=== PATIENT | male | born 1940 | race Caucasian/White ===

== ENCOUNTER 2017-08-18 09:10 | Inpatient (IN) | payer MEDICARE ==
[2017-08-18] VITALS (11 sets, daily range): BP systolic 140–180; BP diastolic 56–79; PULSE 57–103; RESP 20–26; TEMP 98.3–98.6; O2SAT 67–100
[~2017-08-18] VITALS: Ht 177.8 cm; Wt 112.4 kg
[2017-08-18] MEDS ORDERED: ALLO100T PO (09:42)
[2017-08-18] MEDS ORDERED: CLOP75TA PO (09:42)
[2017-08-18] MEDS ORDERED: METO5TAB3 PO (09:42)
[2017-08-18] MEDS ORDERED: ATOR20TA15 PO (09:42)
[2017-08-18] MEDS ORDERED: FURO80TA PO (09:42)
[2017-08-18] MEDS ORDERED: FENO145T2 PO (09:42)
[2017-08-18] MEDS ORDERED: LANTUS2P SQ (09:42)
[2017-08-18] MEDS ORDERED: POTA-163 PO (09:42)
[2017-08-18] MEDS ORDERED: METO100T PO (09:42)
[2017-08-18] MEDS ORDERED: AMLO10TA2 PO (09:42)
[2017-08-18] MEDS ORDERED: GLIM2TAB PO (09:42)
[2017-08-18] MEDS ORDERED: METF1000 PO (09:42)
[2017-08-18] MEDS ORDERED: BENA40TA PO (09:42)
--- NOTE | 2017-08-18 09:59 | PD ---
HPI Chief Complaint: Respiratory Distress Time Seen by Provider: 09:42 Travel History International Travel<30 days: No Contact w/Intl Traveler<30days: No Traveled to known affect area: No History of Present Illness HPI This patient complains of shortness of breath. Duration is 2-3 days. He is also had some central chest tightness. Currently having any chest pain. He said some swelling in his feet and legs beyond usual. He took an extra diuretic today. He has had a cough producing some yellowish phlegm. Denies fever. He has history of bypass grafting surgery. He quit smoking many years ago. He arrives very short of breath and has critical oxygen saturation of 67% on room air. He is having hypoxic respiratory failure and placed on a nonrebreather PFSH Past Medical History Hx Anticoagulant Therapy: Yes (PLAVIX) Cardiovascular Problems: Yes (CHF, OPEN HEART SUGERY) Social History Alcohol Use: No Tobacco Use: No Substance Use: No Allergies-Medications (Allergen,Severity, Reaction): Coded Allergies: No Known Allergies (Unverified , 08/18/17) Reported Meds & Prescriptions Reported Meds & Active Scripts Active Reported Metolazone 5 Mg Tab 5 Mg PO PRN MDD 5 MG Amlodipine (Amlodipine Besylate) 10 Mg Tab 10 Mg PO DAILY Fenofibrate 145 Mg Tab 145 Mg PO DAILY Clopidogrel (Clopidogrel Bisulfate) 75 Mg Tab 75 Mg PO DAILY Potassium Chloride ER (Potassium Chloride) 20 Meq Tab 20 Meq PO DAILY Glimepiride 2 Mg Tab 2 Mg PO DAILY Take with breakfast or first main meal Atorvastatin (Atorvastatin Calcium) 20 Mg Tab 20 Mg PO HS Allopurinol 100 Mg Tab 100 Mg PO DAILY Benazepril (Benazepril HCl) 40 Mg Tab 80 Mg PO DAILY Furosemide 80 Mg Tab 80 Mg PO BID Metformin (Metformin HCl) 1,000 Mg Tab 2,000 Mg PO DAILY With a meal Metoprolol Tartrate 100 Mg Tab 100 Mg PO DAILY Lantus Inj (Insulin Glargine) 1,000 Unit/10 Ml Vial 20 Units SQ HS Review of Systems General / Constitutional: No: Fever Eyes: No: Visual changes HENT: No: Headaches Cardiovascular: Positive: Chest Pain or Discomfort, Edema Respiratory: Positive: Cough, Shortness of Breath, Wheezing Gastrointestinal: No: Abdominal Pain Genitourinary: No: Dysuria Musculoskeletal: Positive: Edema, No: Pain Skin: No Rash Neurologic: No: Weakness Psychiatric: No: Depression Endocrine: No: Polydipsia Hematologic/Lymphatic: No: Easy Bruising Physical Exam Narrative GENERAL: Well-nourished, well-developed patient in respiratory distress. SKIN: Focused skin assessment reveals no rash and nodules. Skin is Warm and dry. HEAD: Atraumatic. Normocephalic. EYES: Pupils equal and round. No scleral icterus. No injection or drainage. ENT: No nasal bleeding or discharge. Mucous membranes pink and moist. NECK: Trachea midline. No JVD. CARDIOVASCULAR: Regular rate and rhythm. No murmur appreciated. RESPIRATORY: Positive accessory muscle use. Bilateral basilar crackling and some expiratory wheezing diffusely. Breath sounds equal bilaterally. GASTROINTESTINAL: Abdomen soft, obese, non-tender, nondistended. Hepatic and splenic margins not palpable. MUSCULOSKELETAL: No obvious deformities. No clubbing. No cyanosis. Symmetric pitting edema of the feet and ankles and lower legs NEUROLOGICAL: Awake and alert. No obvious cranial nerve deficits. Motor grossly within normal limits. Normal speech. PSYCHIATRIC: Appropriate mood and affect; insight and judgment normal. Data Data Last Documented VS Vital Signs Date Time Temp Pulse Resp B/P (MAP) Pulse Ox O2 Delivery O2 Flow Rate FiO2 08/18/17 13:09 62 20 140/56 (84) 95 Nasal Cannula 4.00 Orders Orders Complete Blood Count With Diff (08/18/17 09:48) Basic Metabolic Panel (Bmp) (08/18/17 09:48) B-Type Natriuretic Peptide (08/18/17 09:48) Act Partial Throm Time (Ptt) (08/18/17 09:48) Prothrombin Time / Inr (Pt) (08/18/17 09:48) Ckmb (Isoenzyme) Profile (08/18/17 09:48) Troponin I (08/18/17 09:48) Iv Access Insert/Monitor (08/18/17:48) Ecg Monitoring (08/18/17:48) Oximetry (08/18/17:48) Oxygen Administration (08/18/17 09:48) Chest, Single Ap (08/18/17 09:48) Sodium Chloride 0.9% Flush (Ns Flush) (08/18/17 10:00) Albuterol-Ipratropium Neb (Duoneb Neb) (08/18/17 10:00) Furosemide Inj (Lasix Inj) (08/18/17 10:00) Aspirin (Aspirin) (08/18/17 10:00) Electrocardiogram (08/18/17 09:16) Furosemide Inj (Lasix Inj) (08/18/17 10:30) CKMB (08/18/17 11:05) CKMB% (08/18/17 11:05) Labs Laboratory Tests Test 08/18/17 09:30 08/18/17 11:05 White Blood Count 8.2 TH/MM3 Red Blood Count 4.67 MIL/MM3 Hemoglobin 14.1 GM/DL Hematocrit 43.1 % Mean Corpuscular Volume 92.4 FL Mean Corpuscular Hemoglobin 30.3 PG Mean Corpuscular Hemoglobin Concent 32.8 % Red Cell Distribution Width 17.7 % Platelet Count 193 TH/MM3 Mean Platelet Volume 8.1 FL Neutrophils (%) (Auto) 72.7 % Lymphocytes (%) (Auto) 16.1 % Monocytes (%) (Auto) 9.4 % Eosinophils (%) (Auto) 1.3 % Basophils (%) (Auto) 0.5 % Neutrophils # (Auto) 6.0 TH/MM3 Lymphocytes # (Auto) 1.3 TH/MM3 Monocytes # (Auto) 0.8 TH/MM3 Eosinophils # (Auto) 0.1 TH/MM3 Basophils # (Auto) 0.0 TH/MM3 CBC Comment DIFF FINAL Differential Comment Prothrombin Time 11.4 SEC Prothromb Time International Ratio 1.1 RATIO Activated Partial Thromboplast Time 21.9 SEC B-Type Natriuretic Peptide 328 PG/ML Blood Urea Nitrogen 17 MG/DL Creatinine 1.50 MG/DL Random Glucose 132 MG/DL Calcium Level 9.6 MG/DL Sodium Level 142 MEQ/L Potassium Level 3.3 MEQ/L Chloride Level 103 MEQ/L Carbon Dioxide Level 31.0 MEQ/L Anion Gap 8 MEQ/L Estimat Glomerular Filtration Rate 45 ML/MIN Total Creatine Kinase 104 U/L Troponin I LESS THAN 0.02 NG/ML MDM Medical Decision Making Medical Screen Exam Complete: Yes Emergency Medical Condition: Yes Medical Record Reviewed: Yes Differential Diagnosis Congestive heart failure, ACS, respiratory failure Narrative Course I have reviewed the patient's electronic medical record. Patient arrives critically ill. He is in hypoxic respiratory failure. I placed him on nonrebreather. Saturations are in the upper 90s on that. He received multiple breathing treatments and 60 mg IV Lasix I reviewed his EKG which shows sinus rhythm and no acute ST elevation. Heart rate of 58 Extended cardiac monitoring reveals sinus rhythm without ectopy Labs sent 1020: Reviewed his chest x-ray which shows diffuse pulmonary edema I do not see any consolidation After review that I gave him an additional 40 mg IV Lasix Patient is tachypneic on nonrebreather and tiring out. I placed him on BiPAP therapy to ease the work of breathing. 1100: Patient has urinated 750 cc 12:00: Patient is significantly improved. Taken him off BiPAP and placed on oxygen. All his workup is reviewed. Cardiac enzymes are negative General labs are noted. CBC normal 1310: Patient is urinated almost 3 L He feels improved He still has dyspnea and not stable for outpatient follow-up but now his saturation of mid 90s on a nasal cannula No longer critically ill I do not feel he needs intensive care or ammonium nitrate crystallizer at this point Critical Care Narrative Aggregate critical care time was 80 minutes. Time to perform other separately billable procedures was not included in the critical care time. My time did not include minutes spent treating any other patients simultaneously or on activities that did not directly contribute to the patient's treatment. The services I provided to this patient were to treat and/or prevent clinically significant deterioration that could result in: Cardiopulmonary arrest, cardiac arrhythmia, hypoxemic brain injury I provided critical care services requiring my management, as noted below: Chart data review, documentation time, medication orders and management, vital sign assessments/reviewing monitor data, ordering and reviewing lab tests, ordering and interpreting/reviewing x-rays and diagnostic studies, care of the patient and discussion of the patient with the admitting physicians. Diagnosis Primary Impression: Acute respiratory failure with hypoxia Additional Impression: CHF exacerbation Qualified Codes: I50.9 - Heart failure, unspecified Admitting Information Admitting Physician Requests: Td Snow MD Aug 18, 2017 09:59
[2017-08-18] MEDS ORDERED: FUROSEMIDE 100 MG/10 ML VIAL IV PUSH ONE (10:00)
[2017-08-18] MEDS ORDERED: ASPIRIN 325 MG TAB PO ONE (10:00)
[2017-08-18] MEDS ORDERED: SODIUM CHLORIDE 0.9% FLUSH 10 ML FLUSH IVF PRN (10:00)
[2017-08-18] MEDS: RESP: ALBUTEROL 2.5 MG/IPRATROPIUM 0.5 MG NEB (SCH) INH ×2 (10:03→10:04)
[2017-08-18 10:12] LABS: BASOPHIL % 0.5 % (0.0-2.0); EOSINOPHIL # 0.1 TH/MM3 (0-0.4); EOSINOPHIL % 1.3 % (0.0-4.0); HEMATOCRIT 43.1 % (39.0-51.0); HEMOGLOBIN 14.1 GM/DL (13.0-17.0); LYMPH % 16.1 % (9.0-44.0); LYMPHOCYTE # 1.3 TH/MM3 (1.0-4.8); MEAN CELL VOLUME 92.4 FL (80.0-100.0); MEAN CORPUSCULAR HEMOGLOBIN 30.3 PG (27.0-34.0); MEAN CORPUSCULAR HGB CONC 32.8 % (32.0-36.0); MEAN PLATELET VOLUME 8.1 FL (7.0-11.0); MONO % 9.4 % (0.0-8.0); MONOCYTE # 0.8 TH/MM3 (0-0.9); NEUT % 72.7 % (16.0-70.0); PLATELET COUNT 193 TH/MM3 (150-450); RED BLOOD COUNT 4.67 MIL/MM3 (4.50-5.90); RED CELL DISTRIBUTION WIDTH 17.7 % (11.6-17.2); WHITE BLOOD COUNT 8.2 TH/MM3 (4.0-11.0)
[2017-08-18 10:19] LABS: INTERNATIONAL NORMALIZED RATIO 1.1 RATIO; PROTHROMBIN TIME - PATIENT 11.4 SEC (9.8-11.6)
--- NOTE | 2017-08-18 10:19 | RADRPT ---
EXAM DATE/TIME: 08/18/2017 09:53 [facility] COMPARISON: No previous studies available for comparison. INDICATIONS : Shortness of breath. MEDICAL HISTORY : Myocardial infarction. SURGICAL HISTORY : CABG. ENCOUNTER: Initial ACUITY: 3 days PAIN SCORE: 0/10 LOCATION: Bilateral chest FINDINGS: Mild to moderate diffuse interstitial opacities are seen in both lungs. No confluent infiltrate. Ther e is a tiny pleural effusion on the right. No pneumothorax. Mild cardiomegaly. Patient has had previo us median sternotomy. CONCLUSION: Interstitial opacities and mild cardiomegaly, probably failure. Anil Wilkins MD on August 18, 2017 at 10:16 Board Certified Radiologist. This report was verified electronically.
[2017-08-18] MEDS ORDERED: FUROSEMIDE 40 MG/4 ML VIAL IV PUSH ONE (10:30)
[2017-08-18 11:49] LABS: CALCIUM 9.6 MG/DL (8.5-10.1); CHLORIDE 103 MEQ/L (98-107); GLOMERULAR FILTRATION RATE 45 ML/MIN (>89); GLUCOSE,RANDOM 132 MG/DL (74-106); SODIUM (NA) 142 MEQ/L (136-145)
[2017-08-18 12:01] LABS: BLOOD UREA NITROGEN 17 MG/DL (7-18); TROPONIN I LESS THAN 0.02 NG/ML (0.02-0.05)
[2017-08-18] MEDS ORDERED: GLUCAGON 1 MG/ML VIAL OTHER PRN (13:45)
[2017-08-18] MEDS ORDERED: DEXTROSE 50% IN WATER 50 ML VIAL(D50) IV PUSH PRN (13:45)
--- NOTE | 2017-08-18 13:48 | HHI.HP ---
[facility] Unknown Admission Diagnosis respiratory failure Diagnoses: (1) CHF exacerbation Diagnosis: Principal Chief Complaint: worsening sob Travel History International Travel<30 Days: No Contact w/Intl Traveler <30 Da: No Traveled to Known Affected Are: No History of Present Illness patient is a 77 y/o male with history of CAD,CHF,hypertension, diabetes mellitus and sleep apnea who presented to ER with worsening sob. he says that he 's been having sob on and off for the past two months. he normally takes lasix but he says tat he was prescribed Metolazone to help him with ' the fluid'. 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 he reports ten-pound weight gain over the past few days. he reports orthopnea with occasional cough. he denies any chest pain, fever or chills. he had a pulse-ox of 67% at the time of presentation, was placed on BiPaP and received IV Lasix. at the time of my evaluation he was on oxygen via N/C, says that he's feeling much better now. Review of Systems Constitutional: COMPLAINS OF: Weight gain, DENIES: Fever, Weight loss, Chills, Night Sweats Eyes: DENIES: Blurred vision, Diplopia, Vision loss, Double Vision Ears, nose, mouth, throat: DENIES: Tinnitus, Vertigo, Throat pain, Epistaxis Respiratory: COMPLAINS OF: Cough, DENIES: Apneas, Snoring, Wheezing, Hemoptysis , Sputum production, Shortness of breath Cardiovascular: COMPLAINS OF: Dyspnea on Exertion, Lower Extremity Edema, Orthopnea, DENIES: Chest pain, Palpitations, Syncope, PND, Claudication Gastrointestinal: DENIES: Abdominal pain, Black stools, Bloody stools, Constipation, Diarrhea, Nausea, Vomiting, Difficulty Swallowing, Anorexia Genitourinary: DENIES: Urinary frequency, Urgency, Hematuria, Dysuria Musculoskeletal: DENIES: Joint pain, Muscle aches, Stiffness, Joint Swelling Integumentary: DENIES: Rash Neurologic: DENIES: Abnormal gait, Headache, Localized weakness, Paresthesias, Seizures, Speech Problems, Tremor, Poor Balance Psychiatric: DENIES: Anxiety, Confusion, Mood changes, Depression, Hallucinations, Agitation, Suicidal Ideation, Homicidal Ideation, Delusions Past Family Social History Past Medical History CAD/hypertension/diabetes mellitus/CHF/diabetes mellitus. Past Surgical History CABG/hip replacement/ shoulder surgery. Reported Medications Metolazone 5 Mg Tab 5 Mg PO PRN MDD 5 MG Amlodipine (Amlodipine Besylate) 10 Mg Tab 10 Mg PO DAILY Fenofibrate 145 Mg Tab 145 Mg PO DAILY Clopidogrel (Clopidogrel Bisulfate) 75 Mg Tab 75 Mg PO DAILY Potassium Chloride ER (Potassium Chloride) 20 Meq Tab 20 Meq PO DAILY Glimepiride 2 Mg Tab 2 Mg PO DAILY Take with breakfast or first main meal Atorvastatin (Atorvastatin Calcium) 20 Mg Tab 20 Mg PO HS Allopurinol 100 Mg Tab 100 Mg PO DAILY Benazepril (Benazepril HCl) 40 Mg Tab 80 Mg PO DAILY Furosemide 80 Mg Tab 80 Mg PO BID Metformin (Metformin HCl) 1,000 Mg Tab 2,000 Mg PO DAILY With a meal Metoprolol Tartrate 100 Mg Tab 100 Mg PO DAILY Lantus Inj (Insulin Glargine) 1,000 Unit/10 Ml Vial 20 Units SQ HS Allergies: Coded Allergies: No Known Allergies (Unverified , 08/18/17) Active Ordered Medications Inpatient Medications Albuterol/ Ipratropium (Duoneb Neb) 1 ampule Q15M INH Last administered on at 10:04; Start 08/18/17 at 10:00; Stop 08/18/17 at 10:16; Status DC Aspirin (Aspirin) 325 mg ONCE ONCE PO Last administered on 08/18/17at 10:07; Start 08/18/17 at 10:00; Stop 08/18/17 at 10:01; Status DC Furosemide (Lasix Inj) 40 mg ONCE ONCE IV PUSH Last administered on 08/18/17at 10:24; Start 08/18/17 at 10:30; Stop 08/18/17 at 10:31; Status DC Sodium Chloride (NS Flush) 2 ml UNSCH PRN IVF FLUSH AFTER USING IV ACCESS Last administered on 08/18/17at 10:07; Start 08/18/17 at 10:00 Social History quit smoking years ago/ drinks daily. Physical Exam Vital Signs Vital Signs Date Time Temp Pulse Resp B/P (MAP) Pulse Ox O2 Delivery O2 Flow Rate FiO2 08/18/17 13:09 62 20 140/56 (84) 95 Nasal Cannula 4.00 08/18/17 12:30 95 Nasal Cannula 6.00 08/18/17 12:25 100 40 08/18/17 10:28 60 24 08/18/17 10:27 62 24 165/71 (102) 99 BiPAP 08/18/17 10:22 98 40 08/18/17 09:21 59 25 99 Non-Rebreather 10.00 08/18/17 09:21 57 25 180/79 (112) 99 Non-Rebreather 10.00 08/18/17 09:20 98 Non-Rebreather 12.00 08/18/17 09:13 60 26 180/79 (112) 67 Physical Exam GENERAL: on oxygen via N/C- in no acute distress. SKIN: No rashes, ecchymoses or lesions. Cool and dry. HEAD: Atraumatic. Normocephalic. No temporal or scalp tenderness. EYES: Pupils equal round and reactive. Extraocular motions intact. No scleral icterus. No injection or drainage. ENT: Nose without bleeding, purulent drainage or septal hematoma. Throat without erythema, tonsillar hypertrophy or exudate. Uvula midline. Airway patent. NECK: Trachea midline. No JVD or lymphadenopathy. Supple, nontender, no meningeal signs. CARDIOVASCULAR: Regular rate and rhythm without murmurs, gallops, or rubs. RESPIRATORY:diminished air entry in bases with occasional crackles GASTROINTESTINAL: Abdomen soft, non-tender, nondistended. No hepato-splenomegaly , or palpable masses. No guarding. MUSCULOSKELETAL: Extremities without clubbing, cyanosis, or edema. No joint tenderness, effusion, or edema noted. No calf tenderness. Negative Homans sign bilaterally. NEUROLOGICAL: Awake and alert. Cranial nerves II through XII intact. Motor and sensory grossly within normal limits. Five out of 5 muscle strength in all muscle groups. Normal speech. Laboratory Laboratory Tests Test 08/18/17 09:30 08/18/17 11:05 White Blood Count 8.2 Red Blood Count 4.67 Hemoglobin 14.1 Hematocrit 43.1 Mean Corpuscular Volume 92.4 Mean Corpuscular Hemoglobin 30.3 Mean Corpuscular Hemoglobin Concent 32.8 Red Cell Distribution Width 17.7 Platelet Count 193 Mean Platelet Volume 8.1 Neutrophils (%) (Auto) 72.7 Lymphocytes (%) (Auto) 16.1 Monocytes (%) (Auto) 9.4 Eosinophils (%) (Auto) 1.3 Basophils (%) (Auto) 0.5 Neutrophils # (Auto) 6.0 Lymphocytes # (Auto) 1.3 Monocytes # (Auto) 0.8 Eosinophils # (Auto) 0.1 Basophils # (Auto) 0.0 CBC Comment DIFF FINAL Differential Comment Prothrombin Time 11.4 Prothromb Time International Ratio 1.1 Activated Partial Thromboplast Time 21.9 B-Type Natriuretic Peptide 328 Blood Urea Nitrogen 17 Creatinine 1.50 Random Glucose 132 Calcium Level 9.6 Sodium Level 142 Potassium Level 3.3 Chloride Level 103 Carbon Dioxide Level 31.0 Anion Gap 8 Estimat Glomerular Filtration Rate 45 Total Creatine Kinase 104 Troponin I LESS THAN 0.02 Result Diagram: 08/18/1730 08/18/17 1105 Imaging Last Impressions Chest X-Ray 08/18/17 0948 Signed Impressions: Service Date/Time: Friday, August 18, 2017 09:53 - CONCLUSION: Interstitial opacities and mild cardiomegaly, probably failure. Anil Wilkins MD Caprini VTE Risk Assessment Caprini VTE Risk Assessment: Mod/High Risk (score >= 2) Caprini Risk Assessment Model Point Value = 1 Point Value = 2 Point Value = 3 Point Value = 5 Age 41-60 Minor surgery BMI > 25 kg/m2 Swollen legs Varicose veins or History of unexplained or recurrent spontaneous Oral contraceptives or hormone replacement Sepsis (< 1 month) Serious lung disease, including pneumonia (< 1 month) Abnormal pulmonary function Acute myocardial infarction Congestive heart failure (< 1 month) History of inflammatory bowel disease Medical patient at bed rest Age 61-74 Arthroscopic surgery Major open surgery (> 45 min) Laparoscopic surgery (> 45 min) Malignancy Confined to bed (> 72 hours) Immobilizing plaster cast Central venous access Age >= 75 History of VTE Family history of VTE Factor V Leiden Prothrombin [id number] Lupus anticoagulant Anticardiolipin antibodies Elevated serum homocysteine Heparin-induced thrombocytopenia Other congenital or acquired thrombophilia Stroke (< 1 month) Elective arthroplasty Hip, pelvis, or leg fracture Acute spinal cord injury (< 1 month) Prophylaxis Regimen Total Risk Factor Score Risk Level Prophylaxis Regimen 0-1 Low Early ambulation 2 Moderate Order ONE of the following: *Sequential Compression Device (SCD) *Heparin 5000 units SQ BID 3-4 Higher Order ONE of the following medications: *Heparin 5000 units SQ TID *Enoxaparin/Lovenox 40 mg SQ daily (WT < 150 kg, CrCl > 30 mL/min) *Enoxaparin/Lovenox 30 mg SQ daily (WT < 150 kg, CrCl > 10-29 mL/min) *Enoxaparin/Lovenox 30 mg SQ BID (WT < 150 kg, CrCl > 30 mL/min) AND/OR *Sequential Compression Device (SCD) 5 or more Highest Order ONE of the following medications: *Heparin 5000 units SQ TID (Preferred with Epidurals) *Enoxaparin/Lovenox 40 mg SQ daily (WT < 150 kg, CrCl > 30 mL/min) *Enoxaparin/Lovenox 30 mg SQ daily (WT < 150 kg, CrCl > 10-29 mL/min) *Enoxaparin/Lovenox 30 mg SQ BID (WT < 150 kg, CrCl > 30 mL/min) AND *Sequential Compression Device (SCD) Assessment and Plan Assessment and Plan A/P -acute hypoxemic respiratory failure due to acute on chronic CHF- type unknown continue with IV Lasix-monitor I/O- resume metoprolol and Benazepril continue with oxygen via N/C as needed to keep O2 sat > 90%- neb treatment as needed. check echo. -CAD- s/p CABG; resume plavix, BB and statin -hypertension; resume home meds- will monitor and adjust the regimen as needed. -diabetes mellitus; hold oral hypoglycemics- resume long-acting insulin- accu- check with SSI -sleep apnea; BiPaP at night- -renal insufficiency- likely chronic-will monitor; BMP tomorrow. -alcohol abuse; start on CIWA protocol- watch for withdrawal. -DVT prophylaxis with subq Lovenox. Discussed Condition With ER physician and the patient. Physician Certification 2 Midnight Certification Type: Admission for Inpatient Services Order for Inpatient Services The services are ordered in accordance with Medicare regulations or non- Medicare payer requirements, as applicable. In the case of services not specified as inpatient-only, they are appropriately provided as inpatient services in accordance with the 2-midnight benchmark. Estimated LOS (days): 2 days is the estimated time the patient will need to remain in the hospital, assuming treatment plan goals are met and no additional complications. Post-Hospital Plan: Home Problem Qualifiers (1) CHF exacerbation: Qualified Codes: I50.9 - Heart failure, unspecified Melchor Sanchez MD Aug 18, 2017 13:48
[2017-08-18] MEDS ORDERED: RESP: ALBUTEROL 1.25 MG/3 ML NEB (PRN) NEB (14:00)
[2017-08-18] MEDS ORDERED: LORazepam 2 MG TAB PO PRN (14:00)
[2017-08-18] MEDS ORDERED: LORazepam 1 MG TAB PO PRN (14:00)
[2017-08-18] MEDS ORDERED: FLUMAZENIL 0.5 MG/5 ML VIAL IV PUSH PRN (14:00)
[2017-08-18] MEDS ORDERED: LORazepam 2 MG/ML VIAL IV PUSH PRN ×4 (14:00)
[2017-08-18] MEDS ORDERED: POTASSIUM CHLORIDE 10 MEQ CONTROLLED RELEASE TAB PO ONE (15:00)
--- NOTE | 2017-08-18 16:10 | EKG ---
Date Performed: 08/18/2017 Time Performed: 09:16:56 PTAGE: 77 years EKG: SINUS BRADYCARDIA POSSIBLE RIGHT VENTRICULAR HYPERTROPHY MINIMAL ST DEPRESSION ABNORMAL ECG NO PREVIOUS TRACING DOCTOR: Jef Barone Interpretating Date/Time 08/18/2017 16:07:52
[2017-08-18] MEDS: INSULIN ASPART SUPPLEMENTAL SCALE SQ SCH ×2 (16:43→21:00)
[2017-08-18] MEDS: ATORVASTATIN 20 MG TAB PO SCH (21:00)
[2017-08-18] MEDS: INSULIN DETEMIR 100 UNITS/ML VIAL SQ SCH (21:00)
[2017-08-19] VITALS (12 sets, daily range): BP systolic 133–172; BP diastolic 64–99; PULSE 59–115; RESP 17–22; TEMP 97.4–97.9; O2SAT 94–96
[2017-08-19] MEDS: INSULIN ASPART SUPPLEMENTAL SCALE SQ SCH ×4 (08:00→21:00)
[2017-08-19] MEDS: FENOFIBRATE 145 MG TAB PO SCH (09:00)
[2017-08-19] MEDS: CLOPIDOGREL 75 MG TAB PO SCH (09:00)
[2017-08-19] MEDS: METOPROLOL TARTRATE 100 MG TAB PO SCH (09:00)
[2017-08-19] MEDS ORDERED: ALLOPURINOL 100 MG TAB PO SCH (09:00)
[2017-08-19] MEDS ORDERED: ENOXAPARIN SODIUM 40 MG/0.4 ML SYRINGE SQ SCH (09:00)
[2017-08-19] MEDS: LISINOPRIL 10 MG TAB PO SCH (09:00)
[2017-08-19] MEDS ORDERED: POTASSIUM CHLORIDE 20 MEQ CONTROLLED RELEASE TAB PO SCH (09:00)
[2017-08-19] MEDS: FUROSEMIDE 40 MG/4 ML VIAL IV PUSH SCH ×2 (09:13→17:07)
[2017-08-19 10:25] LABS: BICARBONATE 33.7 MEQ/L (21.0-32.0); CALCIUM 9.3 MG/DL (8.5-10.1); CREATININE 1.57 MG/DL (0.60-1.30)
[2017-08-19] MEDS ORDERED: POTASSIUM CHLORIDE 10 MEQ CONTROLLED RELEASE TAB PO ONE (12:00)
--- NOTE | 2017-08-19 12:24 | ECHRPT ---
Indication: Heart failure, unspecified CONCLUSIONS The left ventricular systolic function is moderately reduced with an estimated ejection fraction in the range of 40-45%. Wall thickness is measured at the upper limits of normal. Normal left ventricular size. The left atrial size is [id number] dilated. There is trace tricuspid valve regurgitation. The estimated pulmonary arterial pressure is 29.4 mmHg. BP: / HR: Rhythm: Other MEASUREMENTS (Male / Female) Normal Values Technical Quality:Fair 2D ECHO LV Diastolic Diameter PLAX 4.6 cm 4.2 - 5.9 / 3.9 - 5.3 cm LV Systolic Diameter PLAX 3.8 cm IVS Diastolic Thickness 1.0 cm 0.6 - 1.0 / 0.6 - 0.9 cm LVPW Diastolic Thickness 1.0 cm 0.6 - 1.0 / 0.6 - 0.9 cm LV Relative Wall Thickness 0.4 LVOT Diameter 2.4 cm M-MODE Aortic Root Diameter MM 3.2 cm LA Systolic Diameter MM 6.2 cm LA Ao Ratio MM 1.9 AV Cusp Separation MM 2.1 cm DOPPLER AV Peak Velocity 113.0 cm/s AV Peak Gradient 5.1 mmHg LVOT Peak Velocity 85.9 cm/s LVOT Peak Gradient 3.0 mmHg AV Area Cont Eq pk 3.4 cm TR Peak Velocity 220.0 cm/s TR Peak Gradient 19.4 mmHg Right Atrial Pressure 10.0 mmHg Pulmonary Artery Systolic Pressu 29.4 mmHg Right Ventricular Systolic Press 29.4 mmHg PV Peak Velocity 109.0 cm/s PV Peak Gradient 4.8 mmHg FINDINGS LEFT VENTRICLE The left ventricular systolic function is moderately reduced with an estimated ejection fraction in the range of 40-45%. Wall thickness is measured at the upper limits of normal. Normal left ventricular size. RIGHT VENTRICLE Normal right ventricular size and systolic function. LEFT ATRIUM The left atrial size is [id number] dilated. RIGHT ATRIUM The right atrial size is normal. ATRIAL SEPTUM Normal atrial septal thickness without atrial level shunting by limited color doppler interrogation. AORTA The aortic root and proximal ascending aorta are normal in size on limited imaging. MITRAL VALVE Structurally normal mitral valve. No mitral valve stenosis or regurgitation. AORTIC VALVE Trileaflet aortic valve. No aortic valve stenosis or regurgitation. TRICUSPID VALVE There is trace tricuspid valve regurgitation. The estimated pulmonary arterial pressure is 29.4 mmHg. PULMONARY VALVE No pulmonary valve regurgitation or stenosis. VESSELS The inferior vena cava is normal in size. PERICARDIUM No pericardial effusion. Matt Asher MD, FACC, FSCAI (Electronically Signed) Final Date:19 August 2017 12:23
--- NOTE | 2017-08-19 13:26 | HHI.PR ---
Subjective Remarks Follow-up heart failure. Improving shortness of breath and exercise tolerance but still on 5 L nasal cannula. Discussed with nursing Objective Vitals Vital Signs Date Time Temp Pulse Resp B/P (MAP) Pulse Ox O2 Delivery O2 Flow Rate FiO2 08/19/17 12:10 97.9 70 22 137/98 (111) 94 08/19/17 09:38 95 Nasal Cannula 6.00 08/19/17 08:10 97.9 108 22 147/75 (99) 94 08/19/17 08:00 95 08/19/17 04:44 97.5 66 20 133/64 (87) 94 08/19/17 04:00 72 08/19/17 00:00 83 08/19/17 00:00 97.8 85 20 172/99 (123) 94 08/18/17 20:00 103 08/18/17 20:00 Nasal Cannula 6.00 08/18/17 19:55 98.3 69 20 162/71 (101) 96 08/18/17 17:00 Nasal Cannula 6.00 08/18/17 16:26 98.6 74 20 166/76 (106) 93 08/18/17 15:58 I/O 08/18/17 08/18/17 08/18/17 08/19/17 08/19/17 08/19/17 07:00 15:00 23:00 07:00 15:00 23:00 Intake Total 720 ml Output Total 4000 ml 1050 ml Balance -4000 ml -330 ml Intake Oral 720 ml Output Urine Total 4000 ml 1050 ml # Voids 7 # Bowel Movements 0 Result Diagram: 08/18/17 0930 08/19/17 0755 Imaging Last Impressions Chest X-Ray 08/18/17 0948 Signed Impressions: Service Date/Time: Friday, August 18, 2017 09:53 - CONCLUSION: Interstitial opacities and mild cardiomegaly, probably failure. Anil Wilkins MD Objective Remarks GENERAL: on oxygen via N/C- in no acute distress. SKIN: No rashes, ecchymoses or lesions. Cool and dry. CARDIOVASCULAR: Regular rate and rhythm without murmurs, gallops, or rubs. RESPIRATORY:diminished air entry in bases with occasional crackles right base GASTROINTESTINAL: Abdomen soft, non-tender, nondistended. No guarding. MUSCULOSKELETAL: Extremities without clubbing, cyanosis but with bilateral lower extremity pitting edema. No joint tenderness, effusion, or edema noted. No calf tenderness. Negative Homans sign bilaterally. NEUROLOGICAL: Awake and alert. Cranial nerves II through XII intact. Motor and sensory grossly within normal limits. Five out of 5 muscle strength in all muscle groups. Normal speech. Procedures None A/P Problem List: (1) CHF exacerbation ICD Code: I50.9 - Heart failure, unspecified Status: Acute Assessment and Plan Acute hypoxemic respiratory failure s/p BIPAP, due to acute on chronic systolic CHF-EF 40%. Improving continue diuresis with IV Lasix, monitor I/O and weight. Fluid restriction to 1500 mL per day. CHF education. Wean oxygen to keep saturations at least 92%. Oxygen walk test CAD- s/p CABG; resume plavix, BB and statin Hypertension; resume home meds- will monitor and adjust the regimen as needed. Diabetes mellitus; hold oral hypoglycemics- resume long-acting insulin- accu- check with SSI Sleep apnea; BiPaP at night- Chronic kidney disease stage not known to the patient. Nonoliguric. Avoid nephrotoxins. Repeat BMP in the morning. Alcohol abuse. Counseled. [facility] protocol. Monitor for withdrawal Noncompliance. Counseled. Refused meds coz he wanted to take his own DVT prophylaxis with subq Lovenox. Consult physical therapy Discharge Planning Wants to be dc tomorrow since he planned to drive back to [place] with family. Pt advised that I cant dc him when he is till on 5 L [place] Problem Qualifiers (1) CHF exacerbation: Qualified Codes: I50.9 - Heart failure, unspecified Drew Draper MD Aug 19, 2017 13:26
[2017-08-19] MEDS ORDERED: OXYGENDME NAS.CANULA (17:03)
[2017-08-19] MEDS: ATORVASTATIN 20 MG TAB PO SCH (21:00)
[2017-08-19] MEDS: INSULIN DETEMIR 100 UNITS/ML VIAL SQ SCH (21:00)
[2017-08-20] VITALS: BP 112/53; PULSE 55; PULSE 57; RESP 17; TEMP 97.5; O2SAT 94
[2017-08-20 04:00] VITALS: BP 147/65; PULSE 58; PULSE 59; RESP 16; TEMP 98.5; O2SAT 96
[2017-08-20 08:00] VITALS: BP 139/65; PULSE 53; PULSE 54; RESP 20; TEMP 97.8; O2SAT 96
[2017-08-20] MEDS: INSULIN ASPART SUPPLEMENTAL SCALE SQ SCH (08:00)
[2017-08-20] MEDS: METOPROLOL TARTRATE 100 MG TAB PO SCH (09:00)
[2017-08-20] MEDS: FENOFIBRATE 145 MG TAB PO SCH (09:00)
[2017-08-20] MEDS: LISINOPRIL 10 MG TAB PO SCH (09:00)
[2017-08-20] MEDS ORDERED: POTASSIUM CHLORIDE 20 MEQ CONTROLLED RELEASE TAB PO SCH (09:00)
[2017-08-20] MEDS: CLOPIDOGREL 75 MG TAB PO SCH (09:00)
[2017-08-20 09:44] LABS: BICARBONATE 35.2 MEQ/L (21.0-32.0); CALCIUM 9.1 MG/DL (8.5-10.1); CREATININE 1.64 MG/DL (0.60-1.30); MAGNESIUM 2.5 MG/DL (1.5-2.5)
[2017-08-20] MEDS: FUROSEMIDE 40 MG/4 ML VIAL IV PUSH SCH (09:53)
[2017-08-20 12:00] VITALS: BP 144/67; PULSE 66; RESP 18; TEMP 98; O2SAT 97
[2017-08-20] MEDS ORDERED: POTASSIUM CHLORIDE 20 MEQ CONTROLLED RELEASE TAB PO ONE (12:30)
--- NOTE | 2017-08-20 12:44 | HHI.PR ---
Subjective Remarks Follow-up heart failure. States he is doing much better ambulating. Still requiring oxygen down to 2.5 L. He wants to go home discussed with nursing and case management will arrange for home oxygen. Patient was advised not to take his own medications in the hospital Objective Vitals Vital Signs Date Time Temp Pulse Resp B/P (MAP) Pulse Ox O2 Delivery O2 Flow Rate FiO2 08/20/17 08:29 92 Room Air 08/20/17 08:00 53 08/20/17 08:00 97.8 54 20 139/65 (89) 96 08/20/17 04:00 98.5 58 16 147/65 (92) 96 08/20/17 04:00 59 08/20/17 00:00 97.5 57 17 112/53 (72) 94 08/20/17 00:00 55 08/19/17 20:09 90 08/19/17 20:00 97.9 90 17 160/68 (98) 96 08/19/17 16:10 97.4 59 20 141/70 (93) 96 08/19/17 16:00 78 I/O 08/19/17 08/19/17 08/19/17 08/20/17 08/20/17 08/20/17 07:00 15:00 23:00 07:00 15:00 23:00 Intake Total 720 ml 420 ml Output Total 1050 ml 1200 ml Balance -330 ml -780 ml Intake Oral 720 ml 420 ml Output Urine Total 1050 ml 1200 ml # Bowel Movements 0 0 Result Diagram: 08/18/17 0930 08/20/17 0835 Imaging Last Impressions Chest X-Ray 08/18/17 0948 Signed Impressions: Service Date/Time: Friday, August 18, 2017 09:53 - CONCLUSION: Interstitial opacities and mild cardiomegaly, probably failure. Anil Wilkins MD Objective Remarks GENERAL: on oxygen via N/C- in no acute distress. SKIN: No rashes, ecchymoses or lesions. Cool and dry. CARDIOVASCULAR: Regular rate and rhythm without murmurs, gallops, or rubs. RESPIRATORY:diminished air entry in bases without crackles GASTROINTESTINAL: Abdomen soft, non-tender, nondistended. No guarding. MUSCULOSKELETAL: Extremities without clubbing, cyanosis but with bilateral lower extremity pitting edema. No joint tenderness, effusion, or edema noted. No calf tenderness. Negative Homans sign bilaterally. NEUROLOGICAL: Awake and alert. Cranial nerves II through XII intact. Motor and sensory grossly within normal limits. Five out of 5 muscle strength in all muscle groups. Normal speech. Procedures None A/P Problem List: (1) CHF exacerbation ICD Code: I50.9 - Heart failure, unspecified Status: Acute Assessment and Plan Acute hypoxemic respiratory failure s/p BIPAP, due to acute on chronic systolic CHF-EF 40%. Improving he is diuresing and lost almost 4 kg from yesterday continue diuresis with Lasix, monitor I/O and weight. Fluid restriction to 1500 mL per day. CHF education. Wean oxygen to keep saturations at least 92%. He failed oxygen walk test will arrange for home oxygen CAD- s/p CABG; resume plavix, BB and statin Hypertension; resume home meds- will monitor and adjust the regimen as needed. Diabetes mellitus; hold oral hypoglycemics- resume long-acting insulin- accu- check with SSI Sleep apnea; BiPaP at night- Chronic kidney disease stage not known to the patient. Nonoliguric. Avoid nephrotoxins. Repeat BMP shows stable creatinine at 1.64 Alcohol abuse. Counseled. [facility] protocol. Monitor for withdrawal Noncompliance. Counseled. Refused meds coz he wanted to take his own, patient counseled DVT prophylaxis with subq Lovenox. Consulted physical therapy Discharge Planning Wants to be dc today when o2 arranged Problem Qualifiers (1) CHF exacerbation: Qualified Codes: I50.9 - Heart failure, unspecified Drew Draper MD Aug 20, 2017 12:44
--- NOTE | 2017-08-20 13:34 | HHI.DCPOC ---
Discharge Care Plan Diagnosis: (1) CHF exacerbation (2) Acute respiratory failure with hypoxia Your Health Problems Are: Difficulty with ADL Exercise Tolerance Goals to Promote Your Health * To prevent worsening of your condition and complications * To maintain your health at the optimal level Directions to Meet Your Goals Take your medications as prescribed Follow your dietary instruction Follow activity as directed Keep your appointments as scheduled Take your immunizations and boosters as scheduled If your symptoms worsen call your PCP, if no PCP go to Urgent Care Center or Emergency Room Smoking is Dangerous to Your Health. Avoid second hand smoke Call the 24-hour hour crisis hotline for domestic abuse at Drew Draper MD Aug 20, 2017 13:34
[2017-08-20 14:09] VITALS: O2SAT 94
--- NOTE | 2017-08-20 14:26 | HHI.DS ---
Discharge Summary Admission Date Aug 18, 2017 at 13:49 Discharge Date: Aug 20, 2017 Admitting Diagnosis respiratory failure (1) CHF exacerbation ICD Code: I50.9 - Heart failure, unspecified Diagnosis: Principal Status: Acute Procedures None Brief History - From Admission patient is a 77 y/o male with history of CAD,CHF,hypertension, diabetes mellitus and sleep apnea who presented to ER with worsening sob. he says that he 's been having sob on and off for the past two months. he normally takes lasix but he says tat he was prescribed Metolazone to help him with ' the fluid'. he says that his finance executive told him to stop Metolazone about four weeks ago when his sob started to get worse. he reports ten-pound weight gain over the past few days. he reports orthopnea with occasional cough. he denies any chest pain, fever or chills. he had a pulse-ox of 67% at the time of presentation, was placed on BiPaP and received IV Lasix. at the time of my evaluation he was on oxygen via N/C, says that he's feeling much better now. CBC/BMP: 08/18/17 0930 08/20/17 0835 Significant Findings Laboratory Tests Test 08/18/17 09:30 08/18/17 11:05 08/19/17 07:55 08/20/17 08:35 Red Cell Distribution Width 17.7 % (11.6-17.2) Neutrophils (%) (Auto) 72.7 % (16.0-70.0) Monocytes (%) (Auto) 9.4 % (0.0-8.0) Activated Partial Thromboplast Time 21.9 SEC (24.3-30.1) B-Type Natriuretic Peptide 328 PG/ML (0-100) Creatinine 1.50 MG/DL (0.60-1.30) 1.57 MG/DL (0.60-1.30) 1.64 MG/DL (0.60-1.30) Random Glucose 132 MG/DL (74-106) 116 MG/DL (74-106) Potassium Level 3.3 MEQ/L (3.5-5.1) 3.1 MEQ/L (3.5-5.1) 3.3 MEQ/L (3.5-5.1) Estimat Glomerular Filtration Rate 45 ML/MIN (>89) 43 ML/MIN (>89) 41 ML/MIN (>89) Troponin I LESS THAN 0.02 NG/ML Blood Urea Nitrogen 21 MG/DL (7-18) 27 MG/DL (7-18) Chloride Level 96 MEQ/L (98-107) 95 MEQ/L (98-107) Carbon Dioxide Level 33.7 MEQ/L (21.0-32.0) 35.2 MEQ/L (21.0-32.0) Imaging Last Impressions Chest X-Ray 08/18/17 0902 Signed Impressions: Service Date/Time: Friday, August 18, 2017 09:53 - CONCLUSION: Interstitial opacities and mild cardiomegaly, probably failure. Anil Wilkins MD PE at Discharge GENERAL: on oxygen via N/C- in no acute distress. SKIN: No rashes, ecchymoses or lesions. Cool and dry. CARDIOVASCULAR: Regular rate and rhythm without murmurs, gallops, or rubs. RESPIRATORY:diminished air entry in bases without crackles GASTROINTESTINAL: Abdomen soft, non-tender, nondistended. No guarding. MUSCULOSKELETAL: Extremities without clubbing, cyanosis but with bilateral lower extremity pitting edema. No joint tenderness, effusion, or edema noted. No calf tenderness. Negative Homans sign bilaterally. NEUROLOGICAL: Awake and alert. Cranial nerves II through XII intact. Motor and sensory grossly within normal limits. Five out of 5 muscle strength in all muscle groups. Normal speech. Hospital Course Acute hypoxemic respiratory failure s/p BIPAP, due to acute on chronic systolic CHF-EF 40%. Improving he is diuresing and lost almost 4 kg from yesterday continue diuresis with Lasix, monitor I/O and weight. Fluid restriction to 1500 mL per day. CHF education. Wean oxygen to keep saturations at least 92%. He failed oxygen walk test will arrange for home oxygen CAD- s/p CABG; resume plavix, BB and statin Hypertension; resume home meds- will monitor and adjust the regimen as needed. Diabetes mellitus; hold oral hypoglycemics- resume long-acting insulin- accu- check with SSI Sleep apnea; BiPaP at night- Chronic kidney disease stage not known to the patient. Nonoliguric. Avoid nephrotoxins. Repeat BMP shows stable creatinine at 1.64 Alcohol abuse. Counseled. [facility] protocol. Monitor for withdrawal Noncompliance. Counseled. Refused meds coz he wanted to take his own, patient counseled DVT prophylaxis with subq Lovenox. Consulted physical therapy Pt Condition on Discharge: Stable Discharge Disposition: Discharge Home Discharge Time: > 30 minutes Discharge Instructions DIET: Follow Instructions for: Heart Healthy Diet, Diabetic Diet Activities you can perform: Regular-No Restrictions Activities to Avoid: Driving Follow up Referrals: Cardiology - 1 Week Cardiology - 1 Week PCP Follow-up - 1 Week PCP Follow-up - 1 Week New Medications: Oxygen (O2) (Oxygen (O2)) Device LITER DARCI.CANULA CONTINUOUS for Prevent Hypoxemia, #2 Oxygen Concentrator Portable Gaseous 2 L/min via Nasal Canula Continuous For 99 months Continued Medications: Allopurinol (Allopurinol) 100 Mg Tab 100 MG PO DAILY for Gout, #30 TAB 0 Refills Amlodipine (Amlodipine) 10 Mg Tab 10 MG PO DAILY for Blood Pressure Management, #30 TAB 0 Refills Atorvastatin (Atorvastatin) 20 Mg Tab 20 MG PO HS for Cholesterol Management, #30 TAB 0 Refills Benazepril (Benazepril) 40 Mg Tab 80 MG PO DAILY for Blood Pressure Management, #30 TAB 0 Refills Clopidogrel (Clopidogrel) 75 Mg Tab 75 MG PO DAILY for Blood Clot Prevention, #30 TAB 0 Refills Fenofibrate (Fenofibrate) 145 Mg Tab 145 MG PO DAILY, #30 TAB 0 Refills Furosemide (Furosemide) 80 Mg Tab 80 MG PO BID, #60 TAB 0 Refills Glimepiride (Glimepiride) 2 Mg Tab 2 MG PO DAILY for Blood Sugar Management, #30 TAB 0 Refills Take with breakfast or first main meal Insulin Glargine Inj (Lantus Inj) 1,000 Unit/10 Ml Vial 20 UNITS SQ HS for Blood Sugar Management, VIAL 0 Refills Metolazone (Metolazone) 5 Mg Tab 5 MG PO PRN for FLUID OVERLOAD MDD 5 MG, #30 TAB 0 Refills Metoprolol Tartrate (Metoprolol Tartrate) 100 Mg Tab 100 MG PO DAILY, #30 TAB 0 Refills Potassium Chloride ER (Potassium Chloride ER) 20 Meq Tab 20 MEQ PO DAILY for Electrolyte Replacement, #30 TAB 0 Refills Drew Draper MD Aug 20, 2017 14:26
== END 2017-08-20 19:10 | disposition home or self-care (01) | DRG 291 ==
LOC: NEPC 09:10 → NEDA 13:49 → N04B 16:26 → N04A 19:55
PROVIDERS: ADMIT Hospitalist; ATTEND Hospitalist
PROC: 5A09357 Assistance with Respiratory Ventilation, Less than 24 Consecutive Hours, Continuous Positive Airway Pressure (ICD-10-PCS; principal; 2017-08-18)
PROC: 3E0F7GC Introduction of Other Therapeutic Substance into Respiratory Tract, Via Natural or Artificial Opening (ICD-10-PCS; 2017-08-18)
DX: I13.0 Hypertensive heart and chronic kidney disease with heart failure and stage 1 through stage 4 chronic kidney disease, or unspecified chronic kidney disease (principal); J96.01 Acute respiratory failure with hypoxia; I50.23 Acute on chronic systolic (congestive) heart failure; E11.9 Type 2 diabetes mellitus without complications; E11.22 Type 2 diabetes mellitus with diabetic chronic kidney disease; I25.10 Atherosclerotic heart disease of native coronary artery without angina pectoris; G47.30 Sleep apnea, unspecified; Z95.1 Presence of aortocoronary bypass graft; Z96.649 Presence of unspecified artificial hip joint; F10.10 Alcohol abuse, uncomplicated; N18.9 Chronic kidney disease, unspecified; Z91.14 Patient's other noncompliance with medication regimen; Z79.4 Long term (current) use of insulin
CPT/HCPCS: 71045; 80048; 82550; 82552; 82948; 83735; 83880; 84484; 85025; 85610; 85730; 93005; 93306; 94002; 94640; 94664; 96374; 99292; J1940